=== PATIENT | female | born 1990 | race Caucasian/White ===

== ENCOUNTER → 2019-02-19 14:55 | Outpatient (CLI) | payer MEDICAID, SELFPAY ==
[2018-05-04 10:27] VITALS: BMI 29.2
[2019-02-19 16:20] LABS: hCG Titer Quant., Serum < 1 mIU/mL (1-3)
== END ==
PROVIDERS: Visit Provider Obstetrics & Gynecology
DX: O20.0 Threatened abortion (principal)
CPT/HCPCS: 36415; 84702

== ENCOUNTER → 2019-02-21 14:35 | Outpatient (CLI) | payer MEDICAID, SELFPAY ==
[2018-05-04 10:27] VITALS: BMI 29.2
[2019-02-21 16:48] LABS: hCG Titer Quant., Serum < 1 mIU/mL (1-3)
== END ==
PROVIDERS: Visit Provider Obstetrics & Gynecology
DX: O20.0 Threatened abortion (principal)
CPT/HCPCS: 36415; 84702

== ENCOUNTER → 2019-07-11 14:05 | Outpatient (CLI) | payer MEDICAID, SELFPAY ==
[2018-05-04 10:27] VITALS: BMI 29.2
[2019-07-11 16:04] LABS: Hemoglobin A1c 4.9 % (4.2-6.3)
[2019-07-11 16:12] LABS: AST(SGOT) 21 U/L (15-37); Alanine Aminotransfer ALT/SGPT 51 U/L (13-56); Albumin, Serum 4.2 g/dL (3.2-5.0); Alkaline Phosphatase 69 U/L (45-117); Anion Gap 3 (5-15); BUN 15 mg/dL (7-18); BUN/Creat Ratio 18.2 RATIO (10-20); Calcium,Total 9.4 mg/dL (8.5-10.1); Chloride 107 mmol/L (98-107); Creatinine, Serum 0.82 mg/dL (0.55-1.02); EST Glomerular Filtration Rate 88 mL/min (>60); Est Glom Filt Rate - Afr Amer 106 mL/min (>60); Free T3 2.9 pg/mL (2.18-3.98); Glucose 83 mg/dL (74-106); Prolactin 9.7 ng/mL; Protein, Total 8.2 g/dL (6.4-8.2); Sodium Level 140 mmol/L (136-145); T4 Free Direct 0.91 ng/dL (0.76-1.46); Thyroid Stim Hormone (TSH) 0.95 uIU/mL (0.358-3.74)
== END ==
PROVIDERS: Visit Provider Obstetrics & Gynecology
DX: E28.2 Polycystic ovarian syndrome (principal)
CPT/HCPCS: 80053; 83036; 84146; 84439; 84443; 84481